=== PATIENT | female | born 1995 | race Caucasian/White ===

== ENCOUNTER 2023-02-02 10:40 | Emergency (ER) | payer BC, SELFPAY ==
--- NOTE | ~2023-02-02 | CT_ITS ---
EXAMINATION: CT HEAD WITHOUT CONTRAST CLINICAL INFORMATION: Dizziness for one week COMPARISON: None available. TECHNIQUE: Contiguous axial imaging was performed from the skull base to vertex without intravenous administration of contrast. This CT examination was performed using dose optimization techniques as appropriate, variously including the following: *Automated exposure control *Adjustment of mA and/or kV according to patient size (this includes techniques or standardized protocols for targeted exams where dose is matched to indication/reason for exam; i.e. extremities or head) *Use of iterative reconstruction technique DLP: 644 mGy-cm FINDINGS: There is no acute intra-axial, extra-axial bleed, masses or midline shift. There is no acute infarction in evolution. There is no edema. The monteiro to white matter differentiation is maintained normal. The lateral ventricles are symmetrical in size and configuration without enlargement. Bone windows reveal no calvarial abnormality. There is no scalp soft tissue abnormality. Bilateral paranasal sinuses and mastoid air cells are well-aerated. CT/CT head/brain wo IV con IMPRESSION: No acute intracranial process seen.
[2023-02-02 10:43] VITALS: BP 114/74; PULSE 85; RESP 16; TEMP 36.2; O2SAT 97; BMI 18.8
[2023-02-02 11:22] VITALS: BP 115/70; PULSE 78; RESP 16; TEMP 36.8; O2SAT 100
--- NOTE | 2023-02-02 11:30 | PC.NURSE ---
a&ox3, vss and up to date. nsr on the case monitor. pt comes in today d/t neuro symptoms acknowledged by urgent care. pt's neuros currently intact at this time. cms intact. pt able to follow commands w/o difficulty. face symmetrical. pt walks w/ steady gait. 20gIV placed in left AC w/o difficulty. labs drawn and sent to lab. urine obtained and sent to lab as well. pt to CT at this time.
[2023-02-02 11:43] LABS: MANUAL DIFF FLAG NO
[2023-02-02 11:45] LABS: Basophils Percent Auto 0.3 % (0-2); Eosinophils Absolute Auto 0.1 X10*3/uL (0.0-0.4); Eosinophils Percent Auto 0.8 % (0-4); Hematocrit 36.8 % (37.0-47.0); Hemoglobin 12.3 g/dl (12.0-16.0); Imm Gran Abs Auto 0.01 X10*3/uL (0.00-0.03); Imm Gran Pct Auto 0.2 % (0.0-0.4); Lymphocytes Absolute Auto 1.5 X10*3/uL (1.2-4.9); Lymphocytes Percent Auto 23.1 % (20-40); Mean Corpuscular HGB Conc 33.4 g/dl (31.0-35.0); Mean Corpuscular Hemoglobin 30.8 pg (27.0-33.0); Mean Platelet Volume 10.2 fL (9.4-12.3); Monocytes Absolute Auto 0.4 X10*3/uL (0.1-1.2); Monocytes Percent Auto 5.5 % (2-11); Neutrophils Absolute Auto 4.5 x10*3/uL (2.0-8.3); Neutrophils Percent Auto 70.1 % (45-73); Platelet Count 207 X10*3/uL (160-400); Red Cell Distribution Width 11.6 % (11.0-16.0); White Blood Count 6.4 X10*3/uL (4.8-10.8)
[2023-02-02 11:49] LABS: Appearance Urine Clear; Color Urine Yellow; Glucose Urine UA Negative (Negative); Leukocyte Esterase Urine Negative (Negative); Nitrite Urine Negative (Negative); PH 6.5 (5.0-9.0); UPreg QC Valid YES; Urine Blood Negative (Negative); Urine Ketones Negative (Negative); Urine Pregnancy NEGATIVE (NEGATIVE); Urine Protein Negative (Neg-Trace)
[2023-02-02 11:50] LABS: INTERNATIONAL NORM RATIO 0.9 (0.9-1.1); Prothrombin Time 11.2 SEC (11.1-13.3)
[2023-02-02 11:53] LABS: Partial Thromboplastin Time 32.4 SEC (26.0-36.4)
[2023-02-02 12:05] LABS: Alanine Aminotransferase 6 U/L (0-31); Albumin Level 4.7 g/dL (3.5-5.0); Alkaline Phosphatase 49 U/L (39-117); Anion Gap 11 (12-20); Aspartate Amino Transferase 13 U/L (5-31); Bilirubin Total 0.5 mg/dL (0.0-1.0); Blood Urea Nitrogen 8 mg/dL (9-16); Calcium 9.7 mg/dL (8.4-10.2); Carbon Dioxide 27 mmol/L (22-29); Chloride 105 mmol/L (96-108); Estimated Glomerular Filt Rate > 60; Glucose Random 84 mg/dL (60-115); Magnesium 2.2 mg/dL (1.6-2.6); Potassium 3.5 mmol/L (3.3-5.1); Sodium 139 mmol/L (135-145); Total Protein 7.2 g/dL (6.5-8.0)
[2023-02-02 12:06] LABS: HCG Quantitative < 2 mIU/mL
--- NOTE | 2023-02-02 13:00 | ED_ITS ---
HPI - Neuro Symptoms/Deficit General Chief Complaint: Neuro Symptoms/Deficit Stated Complaint: Vertigo R Eye Drifting Sent By PCP Time Seen by Provider: 02/02/23 13:00 History of Present Illness HPI Narrative: The patient is a 27-year-old female with a history of migraine headaches and she may also have POTS. She is on lamotrigine, propranolol, Seroquel, and ritalin. She also takes monthly Amovig for migraines. Related Data Allergies Allergy/AdvReac Type Severity Reaction Status Date / Time No Known Allergies Allergy Verified 02/02/23 10:42 Review of Systems 2 Review of Systems: Yes all other systems are reviewed and are negative [facility] Social History Alcohol intake: current Alcohol intake frequency: holidays/special occasions only Smoked in Last 30 Days: No Use of substances other than those prescribed or required for medical reasons: No Advance Directives: No Patient : No Physical Exam 2 Vital Signs: Vital Signs: Last Vital Signs Temp 98.3 F 02/02/23 11:22 Pulse 78 02/02/23 11:22 Resp 16 02/02/23 11:22 BP 115/70 02/02/23 11:22 Pulse Ox 100 02/02/23 11:22 O2 Del Method Room Air 02/02/23 11:22 BMI result Body Mass Index 18.8 Const: Other: The patient is awake, alert, pleasant, cooperative. The patient does not appear in obvious distress or acutely ill in any way. HEENT: Other: The face is symmetrical. Tongue is midline. Ear canals are clear. Tympanic membranes are normal. Eyes: Other: Pupils are large but easily reactive to light. Extraocular movements are intact. No abnormal eye movements observed. Conjunctivae are clear. Test of skew is negative. Funduscopic exam is normal. Neck: Other: No neck swelling. No adenopathy. Resp: Other: Breath sounds clear and equal Cardio: Other: The patient has regular rate and rhythm no murmur Skin: Other: Skin is dry and unremarkable. Neuro: Other: Patient is awake, alert, oriented, appropriate. Speech is normal. Mentation is normal. Pupils are large but appropriately reactive to light. Extraocular movements are intact. Funduscopic exam is unremarkable. Visual soto are intact. Test of skew is negative. No nystagmus apparent. Face is symmetrical. Speech is normal. Strength is normal throughout. Finger-nose is normal. Gait is normal. Romberg is normal. Extrem: Other: No peripheral edema Medications Administered Generic Name Dose Route Start Last Admin Trade Name Anita PRN Reason Stop Dose Admin Sodium Chloride 1,000 mls @ 999 mls/hr 02/02/23 13:30 02/02/23 14:01 Ns IV 02/02/23 14:30 Not Given .Q1H1M [facility] Medical Decision Making Medical Decision Making [facility] Narrative: The patient is a very pleasant 27-year-old with history of migraines and possibly history of POTS who has had positional dizziness for about a week and a half. She says this has been fairly constant for about a week and a half but she feels the dizziness has been getting better. Today she thought that the right eye was moving abnormally. She felt that the eye was drifting towards the midline. She went to an urgent care center and was referred to the emergency room. Prior to my evaluation the patient had labs and head CT ordered. Head CT is negative. My physical exam seems very reassuring. EKG shows normal sinus rhythm at 86 beats per minute. She has unremarkable labs including an undetectable D-dimer. Clinically I do not appreciate any objective neurological deficit. She seems very low risk for stroke or other acute neurological problem. She looks well. She has a neurologist, Dr. Paulino Batista in [place]. I think she may be discharged follow-up with her neurologist and her PCP. She should return if worse. Lab Data 02/02/23 11:20 02/02/23 11:20 Labs: Lab Results 02/02/23 02/02/23 Range/Units 11:20 11:26 WBC 6.4 (4.8-10.8) X10*3/uL RBC 4.00 L (4.20-5.50) X10*6/uL Hgb 12.3 (12.0-16.0) g/dl Hct 36.8 L (37.0-47.0) % MCV 92.0 (80.0-98.0) fL MCH 30.8 (27.0-33.0) pg MCHC 33.4 (31.0-35.0) g/dl RDW 11.6 (11.0-16.0) % Plt Count 207 (160-400) X10*3/uL MPV 10.2 (9.4-12.3) fL Immature Gran % (Auto) 0.2 (0.0-0.4) % Neut % (Auto) 70.1 (45-73) % Lymph % (Auto) 23.1 (20-40) % [place] % (Auto) 5.5 (2-11) % Eos % (Auto) 0.8 (0-4) % Baso % (Auto) 0.3 (0-2) % Lymph # (Auto) 1.5 (1.2-4.9) X10*3/uL [place] # (Auto) 0.4 (0.1-1.2) X10*3/uL Eos # (Auto) 0.1 (0.0-0.4) X10*3/uL Baso # (Auto) 0.0 (0.0-0.2) X10*3/uL Abs Immat Gran (auto) 0.01 (0.00-0.03) X10*3/uL Absolute Neuts (auto) 4.5 (2.0-8.3) x10*3/uL Absolute Nucleated RBC 0.000 (0.0-0.012) X10*3/uL Nucleated RBC % (auto) 0.0 (0.0-0.2) /100WBC PT 11.2 (11.1-13.3) SEC INR 0.9 (0.9-1.1) APTT 32.4 (26.0-36.4) SEC D-Dimer High Sensitivty < 150 NG/ML Sodium 139 (135-145) mmol/L Potassium 3.5 (3.3-5.1) mmol/L Chloride 105 (96-108) mmol/L Carbon Dioxide 27 (22-29) mmol/L Anion Gap 11 L (12-20) BUN 8 L (9-16) mg/dL Creatinine 0.80 (0.5-1.4) mg/dL Estim Creat Clear Calc 90.0 Estimated GFR > 60 Random Glucose 84 (60-115) mg/dL Calcium 9.7 (8.4-10.2) mg/dL Magnesium 2.2 (1.6-2.6) mg/dL Total Bilirubin 0.5 (0.0-1.0) mg/dL AST 13 (5-31) U/L ALT 6 (0-31) U/L Alkaline Phosphatase 49 (39-117) U/L Total Protein 7.2 (6.5-8.0) g/dL Albumin 4.7 (3.5-5.0) g/dL Beta HCG, Quant < 2 mIU/mL Urine Color Yellow Urine Appearance Clear Urine pH 6.5 (5.0-9.0) Ur Specific [place] 1.010 (1.005-1.025) Urine Protein Negative (Neg-Trace) mg/dL Urine Glucose (UA) Negative (Negative) mg/dL Urine Ketones Negative (Negative) mg/dL Urine Blood Negative (Negative) Urine Nitrite Negative (Negative) Ur Leukocyte Esterase Negative (Negative) Urine Test NEGATIVE (NEGATIVE) Discharge Plan Discharge Clinical Impression: Dizziness Patient Disposition: Home, Self-Care Additional Instructions: Your testing in the emergency room today seems very reassuring. I would recommend taking a lot of fluids and possibly increasing salt intake. I would also recommend following up with your neurologist as well as your primary care provider. If you you want to try a medication for dizziness you may try a nondrowsy Dramamine. This may be helpful. Continue your other medications. There is a blood test pending for level of your lamotrigine. Return to the emergency room if significantly worse. Referrals: Paulino Batista MD [Physician] - Silverio Baum FNP-TRENA [Primary Care Provider] -
--- NOTE | 2023-02-02 13:19 | ECG_ITS ---
Test Reason : VERTIGO Blood Pressure : / mmHG Vent. Rate : 086 BPM Atrial Rate : 086 BPM P-R Int : 152 ms QRS Dur : 076 ms QT Int : 380 ms P-R-T Axes : 051 100 065 degrees QTc Int : 454 ms Normal sinus rhythm Rightward axis RSR' or QR pattern in V1 suggests right ventricular conduction delay Otherwise normal ECG No previous ECGs available Referred By: Javier Senior Electronically Signed By:MAURILIO MCLEOD MD
[2023-02-02 13:32] LABS: D Dimer High Sensitivity < 150 NG/ML
[2023-02-02 14:59] LABS: Erythrocyte Sedimentation Rate 4 MM/HR (0-20)
== END 2023-02-02 14:22 | disposition home or self-care (01) ==
PROVIDERS: Physician Assistant; Emergency Provider Emergency Medicine; PCP Registered Nurse
DX: R42 Dizziness and giddiness (principal); G43.909 Migraine, unspecified, not intractable, without status migrainosus; Z79.899 Other long term (current) drug therapy
CPT/HCPCS: 36415; 70450; 80053; 81003; 81025; 83735; 84702; 85025; 85379; 85610; 85652; 85730; 93005; 99284; 99285